=== PATIENT | male | born 1960 | race Caucasian/White ===

== ENCOUNTER 2018-05-14 11:12 | Emergency (ER) | payer OTHER ==
[~2018-05-14] VITALS: Ht 175.3 cm; Wt 109.3 kg
[~2018-05-14 11:12] MED LIST: AMLO10TA2 PO; CETI10CA PO; HYDR-2762 PO; HYDR-971 PO; LEVO50TA5 PO; METF500T5 PO; METO25TA4 PO; MULT-18 PO; OMEG300C PO; OMEP20CA9 PO; TRIA1CAP3 PO
[2018-05-14 12:20] VITALS: BP 181/87
--- NOTE | 2018-05-14 13:00 | RAD ---
KNEE LEFT 3V (AP, oblique, lateral) INDICATION: TWISTED KNEE A COUPLE WEEKS AGO COMPARISON: Knee radiographs dated 07/12/2016. FINDINGS: No acute fracture or malalignment. Unchanged mild tricompartmental arthrosis. Chondrocalcinosis which can be seen with CPPD. Patellar enthesophyte. No suprapatellar joint effusion. Bony mineralization is normal for the patient's age. Vascular calcifications. No radiopaque foreign body. IMPRESSION: 1. No acute fracture or malalignment. 2. Unchanged mild tricompartmental arthrosis. Chondrocalcinosis which can be seen with CPPD. Electronically signed by: Jer Disla MD (05/14/2018 12:57 PM) [facility]
--- NOTE | 2018-05-14 14:09 | PHYS DOC ---
Past Medical History Past Medical History: Arthritis, Diabetes-Type II, Hypertension Past Surgical History: Other Additional Past Surgical Histo: MULTIPLE LUMBAR SURGERIES AT [facility] Alcohol Use: None Drug Use: None Adult General Chief Complaint Chief Complaint: KNEE INJURY HPI HPI Patient is a 57 year old male who is presenting to the emergency room with knee pain for 2 weeks she has orthopnea of tomorrow but wanted to be checked out to make sure that it was not causing any more damage he twisted his knee about 2 weeks ago when he was running quickly across the street. he also was wonering if he could get an mri Allergies Allergies Allergies Coded Allergies Type Severity Reaction Last Updated Verified No Known Drug Allergies 03/04/14 No Physical Exam Physical Exam Constitutional: Well developed, well nourished, no acute distress, non-toxic appearance. [] HENT: Normocephalic, atraumatic, bilateral external ears normal, oropharynx moist, no oral exudates, nose normal. [] Eyes: PERRLA, EOMI, conjunctiva normal, no discharge. [] Neck: Normal range of motion, no tenderness, supple, no stridor. [] normal resp effort no increased work of breathing. Extremities: mild ttp noted left ant and posterior knee no erythema or inudration pedal pulses intact. Neurologic: Alert and oriented X 3, normal motor function Current Patient Data Vital Signs Vital Signs Date Time Temp Pulse Resp B/P (MAP) Pulse Ox O2 Delivery O2 Flow Rate FiO2 05/14/18 12:20 98.0 78 18 181/87 (118) 98 Room Air 98.0 EKG EKG [] Radiology/Procedures Radiology/Procedures [] Impressions: IMPRESSION: 1. No acute fracture or malalignment. 2. Unchanged mild tricompartmental arthrosis. Chondrocalcinosis which can be seen with CPPD. Electronically signed by: Jer Traylor MD (05/14/2018 12:57 PM) [facility] DICTATED and SIGNED BY: JER TRAYLOR MD DATE: 05/14/18 6318 Course & Med Decision Making Course & Med Decision Making Pertinent Labs and Imaging studies reviewed. (See chart for details) 57-year-old male with complaint of knee pain is been there for 2 weeks since he twisted he is worried about internal derangement he is also follow-up tomorrow I encouraged him to continue with this appointment no other acute pathology identified advised blood pressure follow-up in 1 month Fátima Disclaimer Fátima Disclaimer This electronic medical record was generated, in whole or in part, using a voice recognition dictation system. Departure Departure Impression: Primary Impression: Knee injury Disposition: 01 HOME, SELF-CARE Condition: STABLE Patient Instructions: Knee Sprain, [id number] Additional Instructions: KEEP YOUR BRACE ON, SEE DR VILLANUEVA SCHEDULED GET YOUR BLOOD PRESSURE CHECKED IN ONE MONTH LALO SULLIVAN MD May 14, 2018 14:09
== END 2018-05-14 13:01 | disposition home or self-care (01) ==
LOC: ER 11:12
DX: S89.92XA Unspecified injury of left lower leg, initial encounter (principal); E11.9 Type 2 diabetes mellitus without complications; I10 Essential (primary) hypertension; X50.1XXA Overexertion from prolonged static or awkward postures, initial encounter; Y93.89 Activity, other specified; Y92.89 Other specified places as the place of occurrence of the external cause; Y99.8 Other external cause status
CPT/HCPCS: 73562; 99284

== ENCOUNTER → 2018-05-19 | Outpatient (CLI) | payer OTHER, MEDICARE ==
[2018-05-14 12:20] VITALS: BP 181/87
[~2018-05-19] MED LIST changes: -AMLO10TA2 PO; +AMLO10TA6 PO; +METF500T16 PO; -METF500T5 PO
--- NOTE | 2018-05-19 12:43 | KCIC ---
LOWER EXT JOINT WO LT dated 05/19/2018 11:45 AM Indication: Left knee pain . Injury 3 weeks ago. Comparison: Plain films dated 05/15/2018. Technique: Routine multiplanar multisequence imaging performed. . Findings: Mild tricompartmental hypertrophic change with small marginal osteophytes. Thinning and surface irregularity of the articular cartilage throughout. Full-thickness cartilage loss over the weightbearing surfaces medial femoral condyle medial tibial plateau. Small joint effusion. Large popliteal cyst measures up to 8 cm craniocaudal dimension. There is globular increased signal deep to the PCL with heterogeneous signal along the posterior medial joint space. Anterior cruciate and posterior cruciate ligaments are intact. Increased signal within the substance of the PCL with globular signal abnormality deep to the PCL. Medial and lateral collateral complexes are intact. Mild increased signal along the superficial and deep margins of the MCL complex proximally. Iliotibial band, popliteus tendon and pes anserine complex within normal limits. Quadriceps and patellar tendon are intact. No abnormality of the medial or lateral retinaculum. Mild patchy superficial infrapatellar edema, nonspecific. There is some linear signal at the medial meniscal body that does not definitely reach an articular surface. There is focal blunting of the free edge of the medial meniscal root. There is also some irregular signal at the anterior horn of medial meniscus near the meniscal periphery with a globular focus of hypointense signal along the peripheral edge that measures up to 10 mm in size. This correlates with an area of vague calcification on the recent plain films. Similar findings are also noted at the anterior horn the lateral meniscus. Lateral meniscus is otherwise normal in morphology and signal. Impression: 1. There are globular areas of signal abnormality within the joint space, along the undersurface of the PCL and along the margins of the anterior horn medial and lateral meniscus and posterior medial joint space, of uncertain etiology. Could represent nodular synovitis or pigmented nodular synovitis or other chronic inflammatory synovial process. 2. Small joint effusion and large popliteal cyst. 3. Radial tear at the medial meniscal root, likely degenerative. There may also be peripheral tears or degeneration of the anterior horn of medial and lateral menisci. 4. Increased signal of the PCL, intrasubstance degeneration versus partial-thickness tearing 5. Mild increased signal along the superficial and deep margins of the medial collateral ligament complex, likely reactive edema. Low-grade strain cannot be excluded. Electronically signed by: Iker Christina MD (05/19/2018 12:40 PM) [facility]
== END | disposition home or self-care (01) ==
LOC: KCIC MRI 11:08
PROVIDERS: ATTEND Orthopaedic Surgery
DX: S83.242A Other tear of medial meniscus, current injury, left knee, initial encounter (principal); M71.22 Synovial cyst of popliteal space [Baker], left knee; I10 Essential (primary) hypertension; E11.9 Type 2 diabetes mellitus without complications; E03.9 Hypothyroidism, unspecified; X58.XXXA Exposure to other specified factors, initial encounter; Y93.89 Activity, other specified; Y92.89 Other specified places as the place of occurrence of the external cause; Y99.8 Other external cause status
CPT/HCPCS: 73721

== ENCOUNTER → 2019-04-26 | Outpatient (CLI) | payer OTHER ==
[2018-06-09 12:31] VITALS: BP 162/79
[~2019-04-26] MED LIST changes: -AMLO10TA6 PO; +AMLO10TA8 PO; +ATOR40TA59 PO; +BUPR300T4 PO; +CALC-52 PO; +FURO20TA3 PO; -HYDR-2762 PO; +HYDR-2765 PO; +HYDR-3164 PO; -HYDR-971 PO; +KRIL500C PO; +LEVO75TA5 PO; +METF10007 PO; +METO-269 PO; +NAPR-514 PO; +OMEP20CA10 PO; -OMEP20CA9 PO; +PREG75CA PO; +TAMS0.4C97 PO
--- NOTE | 2019-04-26 16:45 | KCIC ---
EXAM: Dual energy x-ray absorptiometry (DEXA). HISTORY: 58-year-old male with foot fractures and thyroid disease. Osteoporosis screening. COMPARISON: None. TECHNIQUE: Dual energy x-ray absorptiometry of the lumbar spine and left hip was performed. Calculation of bone mineral density based on standard deviations above or below the expected young adult normal value (T-score) was completed. FINDINGS: The average bone mineral density in the 1st through 4th lumbar vertebrae is 1.591 g/cmxcm, corresponding with a T-score of 4.5. The average total bone mineral density in the left hip is 1.318 g/cmxcm, corresponding with a T-score of 1.9. IMPRESSION: Normal bone mineral density. Note: Definitions established by the World Health Organization: 1. Normal: T-score is -1.0 or above. 2. Osteopenia: T-score is between -1.0 and -2.5 . 3. Osteoporosis: T-score is -2.5 or below. Electronically signed by: Janee Diggs MD (04/26/2019 4:42 PM) [place] [id number]
--- NOTE | 2019-04-26 17:39 | KCIC ---
MR of the right knee HISTORY: Right knee pain, twisting injury and was 2 weeks ago. Pain medial. TECHNIQUE: Routine multiplanar sequences are obtained. COMPARISON: None are currently available. FINDINGS: Moderate to severe motion degradation. Mild distortion of the body of the medial meniscus, particularly the inferior aspect. There is some hypointense tissue just below this aspect of the meniscus and extending superficial to the medial tibial plateau, suspicious for displaced meniscal tissue. Distortion of the lateral meniscus. Abnormal signal extending to the superior articular surface best seen on the coronal images. Findings compatible with a degenerative tear. Anterior cruciate ligament is thick and hyperintense. Visualization is limited by the motion on the sagittal T2-weighted images, but no definite through and through rupture or displacement. No acute Pivot shift bone injuries are seen. Posterior cruciate ligament is very poorly defined, within this tissue, suspicious for tear although again visualization limited due to the motion degradation. Medial collateral ligament is intact. Iliotibial band unremarkable. Fibular collateral ligament, biceps femoris tendon and popliteus tendon are intact. Extensor mechanism appears to be intact. Small joint effusion. Small Denton's cyst. Moderate to severe cartilage loss at the medial and lateral joint compartments. Cartilage evaluation limited due to the motion. There is at least [id number] chondromalacia at the patellofemoral joint. No bone destruction or acute fracture. IMPRESSION: 1. Findings suspicious for a degenerative tear of the medial meniscus with some extruded tissue or scarring in the medial tibial recess. 2. Lateral meniscal tear. 3. Evaluation of the cruciate ligaments is compromised by motion degradation. The posterior cruciate ligament is very thick and poorly defined and a tear is suspected, although it is possible that this mostly represents chronic degeneration exaggerated by the motion. Thickening and heterogeneity of the anterior cruciate ligament is most likely degenerative, no convincing evidence of full-thickness rupture or displacement. Electronically signed by: Iker Huntley MD (04/26/2019 5:36 PM) [facility]
== END | disposition home or self-care (01) ==
LOC: KCIC DEXA 15:35
PROVIDERS: ATTEND Orthopaedic Surgery
DX: Z13.820 Encounter for screening for osteoporosis (principal); S83.281A Other tear of lateral meniscus, current injury, right knee, initial encounter; M71.21 Synovial cyst of popliteal space [Baker], right knee; M94.261 Chondromalacia, right knee; M25.461 Effusion, right knee; E07.9 Disorder of thyroid, unspecified; E11.9 Type 2 diabetes mellitus without complications; X50.1XXA Overexertion from prolonged static or awkward postures, initial encounter; Y93.89 Activity, other specified; Y92.89 Other specified places as the place of occurrence of the external cause; Y99.8 Other external cause status
CPT/HCPCS: 73721; 77080

== ENCOUNTER 2019-05-04 08:00 | Day surgery (SDC) | payer OTHER ==
[~2019-05-04] VITALS: Ht 180.3 cm; Wt 113.4 kg
[~2019-05-04 08:00] MED LIST changes: +BUPIVACAINE MPF 0.5% 30 ML VIAL. ONE; +BUPIVACAINE-EPI 0.5%-1:200000 MPF 30 ML VIAL. INJ ONE; +HYDROmorphone 2 MG/ML VIAL IV PRN; +IV RINGERS,LACTATED 1000ML 1,000 ML IV SCH; +LIDOCAINE 1% PF 2 ML VIAL. ID PRN; +MORPHINE SULFATE 2 MG/ML VIAL. IV PRN; +ONDANSETRON PF 4 MG/2 ML VIAL. IV PRN; +PROCHLORPERAZINE 10 MG/2 ML VIAL. IV PRN; +fentaNYL PF VIAL 100 MCG/2 ML VIAL IV PRN
[2019-05-04] MEDS: INSULIN LISPRO 100 UNIT/ML 3ML VIAL for OP,RR ONLY. SQ PRN ×2 (08:50→12:52)
[2019-05-04] MEDS ORDERED: ONDANSETRON PF 4 MG/2 ML VIAL. ONE (09:33)
[2019-05-04] MEDS ORDERED: MIDAZOLAM HCL/PF 2 MG/2 ML VIAL. ONE (09:33)
[2019-05-04] MEDS ORDERED: PROPOFOL 20 ML IV ONE (09:33)
[2019-05-04] MEDS ORDERED: fentaNYL PF VIAL 100 MCG/2 ML VIAL ONE (09:33)
[2019-05-04] MEDS ORDERED: DEXAMETHASONE SOD PHOS 4 MG/ML VIAL ONE (09:33)
[2019-05-04] MEDS ORDERED: LIDOCAINE 2% PF 5 ML VIAL. ONE (09:33)
[2019-05-04] MEDS ORDERED: HYDR-3135 PO (09:34)
--- NOTE | 2019-05-04 09:35 | DISCH ---
DISCHARGE INSTRUCTIONS Condition on Discharge Condition on Discharge: Stable Activity After Discharge Activity Instructions for Disc: Other, see below (slow advance activities as tolerated) Weight Bearing Status after Di: As tolerated Diet after Discharge Diet after Discharge: Regular Wound Incision Care Wound/Incision Care: Ice to area for comfort, Change dressing (remove dressing in 2 days may then shower no soaking until sutures removed) Contacting the after DC Call your doctor for: Concerns you may have Follow-Up Follow up with: Dr. Romero 10 days JOLYNN ROMERO MD May 04, 2019 09:35
[2019-05-04] MEDS ORDERED: ceFAZolin 2GM PREMIX 2 GM/50 ML BAG IV ONE (12:00)
[2019-05-04] MEDS ORDERED: SEVOFLURANE 61 TO 120 MINUTES. IH ONE (12:19)
[2019-05-04] MEDS: fentaNYL PF VIAL 100 MCG/2 ML VIAL IV PRN ×2 (12:44→12:58)
[2019-05-04] MEDS ORDERED: HYDROcodone/APAP 10/325 1 TAB TABLET PO ONE (13:15)
[2019-05-04 14:15] VITALS: BP 145/62
--- NOTE | 2019-05-04 23:29 | PDOC4 ---
Operative Note Operative Note Date of surgery: 05/04/2019 Preoperative diagnosis: Right knee meniscal tear Postoperative diagnosis: Same with medial and lateral meniscal tears and removal greater than 2 cm loose body intercondylar notch area through an enlarged portal and debridement of extensive apparent calcium pyrophosphate disease Operative procedure: Right knee arthroscopy partial medial and lateral meniscectomies extensive debridement and removal 2 centimeter loose body Surgeon: Nick Anesthesia: Gen. Estimated blood loss: 5 mL Complications: None Operative indications: Please see my preoperative clinic note for detailed operative indications and note that he was having pain and swelling particularly with twisting pivoting activities sharp in nature and while he had decrease in activities due to a foot surgery with some resolution of his symptoms and he twisted his knee noted increased symptoms intermittently but consistently. MRI appeared consistent with clinical the description of the medial meniscus tear I had gone over with him risks benefits postoperative course of arthroscopic treat ment nonoperative treatment alternatives the fact that I could not undo degenerative changes in the knee and he may have continued pain nerve or blood vessel damage infection medical or other anesthetic competitions among others all his questions were answered he agrees to proceed with surgical evaluation and treatment. Operative text: Patient was identified procedure verified patient placed in the supine position on the operating table. After adequate amounts of general anesthesia were administered the right lower extremity was prepped and draped in standard sterile fashion with a thigh tourniquet. After timeout was performed patient procedure identified and verified the right lower extremity was exsanguinated by Esmarch bandage tourniquet inflated to 350 mm mercury a lateral portal was established a medial portal established using spinal needle localization and the knee joint was systematically examined. 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 Although there were no large loose bodies in the gutters or suprapatellar pouch debridement of CPPD in the synovium was carried out with the arthroscopic shaver he was noted to have a posterior horn medial meniscus tear that was displaceable and was trimmed back to stable tissue using arthroscopic punch and shaver. He had a large loose body anterior to the ACL in the intercondylar notch area that appeared to be somewhat calcified and perhaps related to the CPPD as well as it did impinge in full knee extension. This was removed through an enlarged medial portal and further debridement of the involved tissues with deposition was carried out with the arthroscopic shaver ACL was probed and found to be intact as was the PCL he had extensive involvement of complex tearing of the lateral meniscus which was debrided back to stable tissue using arthroscopic punch and shaver. Although he had significant chondromalacia in both the medial and lateral compartment no further debridement or chondroplasty was necessary. No further loose bodies were noted joint was drained of arthroscopic fluid enlarged portal was closed with buried Vicryl suture skin closure with nylon suture injection of half percent plain Marcaine was injected throughout the portal areas incision and fat pad sterile dressings were applied toes were noted be warm pink find deflation of tourniquet patient was returned recovery room in stable condition having tolerated procedure well JOLYNN VILLANUEVA MD May 04, 2019 23:29
== END 2019-05-04 14:51 ==
LOC: SURG 08:00
PROVIDERS: ATTEND Orthopaedic Surgery
DX: S83.241A Other tear of medial meniscus, current injury, right knee, initial encounter (principal); S83.271A Complex tear of lateral meniscus, current injury, right knee, initial encounter; I10 Essential (primary) hypertension; E11.9 Type 2 diabetes mellitus without complications; M94.261 Chondromalacia, right knee; X58.XXXA Exposure to other specified factors, initial encounter; Y93.89 Activity, other specified; Y92.89 Other specified places as the place of occurrence of the external cause; Y99.8 Other external cause status; Z79.84 Long term (current) use of oral hypoglycemic drugs
CPT/HCPCS: 29880; 82962; A7015; C1782; J0696; J1100; J2001; J2250; J2405; J2704; J3010; J3490

== ENCOUNTER → 2021-10-05 | Outpatient (CLI) | payer OTHER ==
[~2021-10-05] MED LIST changes: +AMLO-187 PO; -AMLO10TA8 PO; +BACI1PAC4 TP; -BUPIVACAINE MPF 0.5% 30 ML VIAL. ONE; -BUPIVACAINE-EPI 0.5%-1:200000 MPF 30 ML VIAL. INJ ONE; -BUPR300T4 PO; +BUPR300T92 PO; +HYDR-3135 PO; -HYDROmorphone 2 MG/ML VIAL IV PRN; -IV RINGERS,LACTATED 1000ML 1,000 ML IV SCH; -LIDOCAINE 1% PF 2 ML VIAL. ID PRN; -MORPHINE SULFATE 2 MG/ML VIAL. IV PRN; -OMEP20CA10 PO; +OMEP20CA16 PO; -ONDANSETRON PF 4 MG/2 ML VIAL. IV PRN; +PREG-9 PO; -PREG75CA PO; -PROCHLORPERAZINE 10 MG/2 ML VIAL. IV PRN; -fentaNYL PF VIAL 100 MCG/2 ML VIAL IV PRN
[2021-10-05 14:06] LABS: BASO # 0.1 x10^3/uL (0.0-0.2); BASO % 1 % (0-3); EOS # 0.3 x10^3/uL (0.0-0.7); EOS % 2 % (0-3); HEMATOCRIT 39.5 % (39.0-53.0); LYMPH # 3.8 x10^3/uL (1.0-4.8); LYMPH % 35 % (24-48); MEAN CORPUSCULAR HEMOGLOBIN 29 pg (25-35); MEAN CORPUSCULAR HGB CONC 33 g/dL (31-37); MEAN CORPUSCULAR VOLUME 89 fL (79-100); MONO # 0.7 x10^3/uL (0.0-1.1); MONO % 7 % (0-9); NEUT % 55 % (31-73); PLATELET COUNT 253 x10^3/uL (140-400); RED BLOOD COUNT 4.41 x10^6/uL (4.30-5.70); RED CELL DISTRIBUTION WIDTH 13.5 % (11.5-14.5); WHITE BLOOD COUNT 10.9 x10^3/uL (4.0-11.0)
[2021-10-06 03:09] LABS: HEMOGLOBIN A1C 9.8 % (4.8-5.6)
== END ==
LOC: SURGPAT 10:23
PROVIDERS: ATTEND Plastic Surgery
DX: Z01.812 Encounter for preprocedural laboratory examination (principal); I10 Essential (primary) hypertension
CPT/HCPCS: 36415; 83036; 85025

== ENCOUNTER 2021-10-06 08:28 | Day surgery (SDC) | payer OTHER ==
[2021-10-05 11:35] VITALS: BP 141/76
[2021-10-05 12:03] LABS: CALCIUM 8.5 mg/dL (8.5-10.1); CREATININE 1.5 mg/dL (0.7-1.3); GFR 47.7; POTASSIUM 4.2 mmol/L (3.5-5.1)
[2021-10-05 12:22] LABS: HEMATOCRIT 38.5 % (39.0-53.0); HEMOGLOBIN 12.8 g/dL (13.0-17.5); RED BLOOD COUNT 4.35 x10^6/uL (4.30-5.70); RED CELL DISTRIBUTION WIDTH 13.7 % (11.5-14.5); WHITE BLOOD COUNT 10.5 x10^3/uL (4.0-11.0)
--- NOTE | 2021-10-05 16:04 | EKG ---
[facility] [address] [place] [address] Test Date: 2021-10-05 Test Time: 11:37:34 Pat Name: BRIDGET ZHENG Department: Room: Gender: M Reconciliation Analyst: : 1960 Requested By: JHONNY JACKSON Order Number: [id number] Reading MD: Reilly Turner MD Measurements Intervals Arnett Rate: P: CA: QRS: QRSD: T: QT: QTc: Interpretive Statements SR NO ACUTE FINDINGS Electronically Signed On 10-05-2021 16:13:46 BRIDGE CONTRACTOR by Reilly Turner MD
[~2021-10-06] VITALS: Ht 180.3 cm; Wt 120.4 kg
[~2021-10-06 08:28] MED LIST changes: -BACI1PAC4 TP; +HYDROmorphone 2 MG/ML INJ. IVP PRN; +IV RINGERS,LACTATED 1000ML 1,000 ML IV SCH; +MORPHINE SULFATE 2 MG/ML INJ. IVP PRN; +PROCHLORPERAZINE 10 MG/2 ML VIAL. IVP PRN; +ceFAZolin SODIUM 3 GM in IV DEXTROSE 5% 100ML 100 ML IV PRN; +fentaNYL PF VIAL 100 MCG/2 ML VIAL IVP PRN
[2021-10-06 08:59] VITALS: BP 166/79
[2021-10-06] MEDS ORDERED: LIDOCAINE 2% PF 5 ML VIAL. ONE (09:00)
[2021-10-06] MEDS ORDERED: ONDANSETRON PF 4 MG/2 ML VIAL. ONE (09:00)
[2021-10-06] MEDS ORDERED: DEXAMETHASONE SOD PHOS 4 MG/ML VIAL ONE (09:00)
[2021-10-06] MEDS ORDERED: PROPOFOL 10 MG/ML (20ML) VIAL. IV ONE (09:00)
[2021-10-06] MEDS ORDERED: SEVOFLURANE 61 TO 120 MINUTES. IH ONE (09:00)
[2021-10-06] MEDS ORDERED: fentaNYL PF VIAL 100 MCG/2 ML VIAL ONE ×2 (09:01→11:14)
[2021-10-06] MEDS ORDERED: SCOPOLAMINE 1.5MG PATCH. TD ONE (09:15)
[2021-10-06] MEDS ORDERED: BACITRACIN TOPICAL OINT PACKET. TP ONE ×2 (09:24→09:36)
[2021-10-06] MEDS ORDERED: LIDOCAINE 1%/EPI 1:100,000 20 ML VIAL. ONE (09:24)
[2021-10-06] MEDS: INSULIN LISPRO 100 UNIT/ML 3ML VIAL for OP,RR ONLY. SQ PRN ×2 (09:33→11:39)
[2021-10-06] MEDS ORDERED: BUPIVACAINE-EPI 0.25%-1:200000 MPF 30 ML VIAL. ONE (09:35)
[2021-10-06] MEDS ORDERED: BACI1PAC4 TP (09:37)
--- NOTE | 2021-10-06 09:43 | PDOC4 ---
OPERATIVE NOTE Pre-Op Diagnosis: Mass of dorsum of left hand Post-Op Diagnosis: Same Procedure Performed: Excision of mass of dorsum of left hand, CPT 72807 Surgeon: Katie Jackson MD Anesthesia Type: General Blood Loss: 10mL Specimans Obtained: Mass of left hand Findings: See op note Complications: None Operative Note: Informed consent was obtained in the perioperative holding area. The risks of bleeding, infection, hematoma, wound dehiscence, wound healing issues, mass recurrence, need to additional excision procedures, need for revision procedures, damage to surrounding nerves/arteries/veins/tendons, loss of function, stiffness, ongoing pain was discussed with the patient. He understood and desired to proceed. The patient was brought to the OR and placed on the OR table in the supine position. A timeout was completed verifying the correct patient and procedure. SCDs were placed on both lower extremities. General anesthesia was induced. IV Antibiotics were given. The left hand was outstretched on a hand table then prepped and draped in the usual sterile fashion. A longitudinal incision through the dermis was made extending just beyond the boundaries of the mass. Tenotomy scissors were used to spread the subcutaneous tissues until the mass was reached. Care was taken to preserve the overlying radial sensory nerves. The mass was noted to be friable and dissection with the tenotomy scissors proceeded around the mass to free it from the surrounding subcutaneous tissues. The mass was noted to be adherent to the underlying EDC tendons of the middle finger. A #15 scalpel was used to dissect the mass from the underlying tendon. More than 75% of the underlying tendon was remaining at the end of the dissection. The wound was irrigated with saline. The deep subcutaneous tissue was approximated with 3-0 PDS suture. The skin was closed with 4-0 nylon suture in an interrupted horizontal mattress fashion. Bacit racin, Xeroform, and a soft dressing were placed. The patient tolerated procedure well and was taken to the PACU in stable condition. KATIE JACKSON MD Oct 06, 2021 09:43
[2021-10-06] MEDS: fentaNYL PF VIAL 100 MCG/2 ML VIAL IVP PRN ×2 (11:16→11:38)
[2021-10-06] MEDS ORDERED: INSULIN LISPRO 100 UNIT/ML 3ML VIAL for OP,RR ONLY. SQ ONE ×2 (11:40)
[2021-10-06] MEDS ORDERED: HYDROcodone/APAP 10/325 1 TAB TABLET PO ONE (12:00)
[2021-10-06 12:15] VITALS: BP 138/60
--- NOTE | 2021-10-08 16:08 | PATHOLOGY ---
[facility] Accession Number: [id number] . 01 Material submitted: . hand - LEFT HAND MASS. Modifiers: left . 01 Clinical history: . LT WRIST SOFT TISSUE MASS EXCISION OF SOFT TISSUE MASS TO LEFT WRIST . 02 Diagnosis: Fibroadipose tissue, left hand mass, left wrist soft tissue mass excision: - Nodular crystalline deposits with surrounding granulomatous inflammatory reaction, consistent with gouty tophus. . (JPM:mm; 10/08/2021) [facility] 10/08/2021 1306 Local . 02 Comment: Sections of the left wrist mass reveal nodular crystalline deposits which are surrounded by a characteristic granulomatous inflammatory response. 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 . (JPM:mml; 10/08/2021) . 02 Electronically signed: . Johann Sofia MD, Pathologist NPI- [id number] . 01 Gross description: . The specimen is received in formalin, labeled "Talat Almanza, left hand mass". Received is a single, 3.1 x 2.3 x 1.0 cm, irregularly shaped fragment of jha-white, shaggy and fibrous tissue with multiple metallic clips. The exterior surface is inked black, and the specimen is serially sectioned to reveal a solid, jha-white cut surface. Pot Operator sections are submitted in cassette A1. (JGG; 10/07/2021) [facility] 10/08/2021 1302 Local . 02 Pathologist provided ICD-10: R22.32 . 02 CPT . 485028 Specimen Comment: A courtesy copy of this report has been sent to [phone], [phone] Specimen Comment: [id number] Specimen Comment: Report sent to / DR CHRIS Specimen Comment: A duplicate report has been generated due to demographic updates. Performed at: 01 [facility] [id number] [id number] MD Santino Rausch MD Phone: [phone] Performed at: 02 [facility] [address] [place], [place] [id number] MD Johann Sofia MD Phone: [phone]
== END 2021-10-06 13:12 | disposition home or self-care (01) ==
LOC: SURG 08:28
PROVIDERS: ATTEND Plastic Surgery
DX: M1A.9XX1 Chronic gout, unspecified, with tophus (tophi) (principal); I10 Essential (primary) hypertension; E11.9 Type 2 diabetes mellitus without complications; E78.00 Pure hypercholesterolemia, unspecified; K21.9 Gastro-esophageal reflux disease without esophagitis; E03.9 Hypothyroidism, unspecified; F32.9 Major depressive disorder, single episode, unspecified; M19.90 Unspecified osteoarthritis, unspecified site; Z98.890 Other specified postprocedural states; Z79.899 Other long term (current) drug therapy; Z87.891 Personal history of nicotine dependence
CPT/HCPCS: 26113; 36415; 80048; 82962; 85027; 85610; 85730; 88304; 93005; A4930; A6223; A6258; A6402; J1100; J1815; J2405; J2704; J3010; J3490; A6443